=== PATIENT | female | born 1965 | race Asian ===

== ENCOUNTER → 2016-08-24 | Outpatient (CLI) | payer OTHER ==
--- NOTE | 2016-08-24 13:27 | MA ---
Diagnostic Digital Mammogram Right Breast Clinical Indications: Follow up possible developing density Technique: Compression was obtained in CC, and 90-degree lateral views of the right breast. This exa mination is processed by the [employer] computer-aided detection system. Comparison: August 05, 2016; December 06, 2012; September 28, 2010 Breast density: D; The breasts are extremely dense, which lowers the sensitivity of mammography. Findings: CAD was reviewed. The density of concern appears to represent normal overlapping normal breast parenchymal tissue. No significant abnormality seen. However, the dense breast parenchymal tissue could potentially obscure underlying mass. Impression: Dense breast tissue inframedial aspect of the right breast that probably represents chris l overlapping breast parenchyma. However, a mass could be obscured. Subsequent ultrasound was performed medial right breast to confirm dense underlying tissue and no gui dence of underlying mass. BI-RADS 0
--- NOTE | 2016-08-24 14:07 | US ---
Ultrasound right breast 1326 hours. History: Possible developing density lower inner right breast. Findings: Ultrasound of the lower inner right breast in area of prominent density at mammography demo nstrates normal dense underlying breast parenchymal tissue without significant solid or cystic mass. Within the 12 o'clock position of the right breast about 6 cm from the nipple, there is a smooth oval homogeneous hypoechoic solid nodule that measures 15 x 5 x 16 mm. The margins are smooth with occasi onal visualization of an echogenic capsule. Upon review of mammogram, there is a smooth oval nodule o n recent mammographic evaluation. However, this cannot be confirmed to have been present on more prio r mammographic imaging. No additional solid or cystic mass is seen within the right breast. Impression: 1. Smooth oval hypoechoic solid probably benign nodule 12 o'clock position right breast about 6 cm fr om the nipple most compatible with a fibroadenoma. However, consider 6 month ultrasound followup of t he right breast to confirm stability and benign features. BI-RADS 3 2. Dense echogenic breast parenchymal tissue lower inner right breast that corresponds with prominent density on prior mammographic evaluation. The results of this study were reviewed with the patient.
== END ==
LOC: BMCIMAGING 12:43
DX: Z12.39 Encounter for other screening for malignant neoplasm of breast (principal); R92.2 Inconclusive mammogram
CPT/HCPCS: G0206